=== PATIENT | female | born 1985 | race American Indian/Alaskan Native ===

== ENCOUNTER 2021-11-21 03:14 | Inpatient (IN) | payer SELFPAY ==
[2021-11-21] MEDS ORDERED: ONDANSETRON 4 MG/2 ML INJ IV ONE (03:41)
[2021-11-21] MEDS ORDERED: SODIUM CHLORIDE 0.9% 1000 ML 1,000 ML IV ONE ×2 (03:41→06:05)
--- NOTE | 2021-11-21 03:46 | Emergency Department Report ---
<OMER GOVEA - Last Filed: 11/21/21 05:50> ED General Adult HPI - General Chief complaint: Nausea/Vomiting/Diarrhea Stated complaint: N/V, Chills Time Seen by Provider: 11/21/21 03:38 Source: patient, EMS Mode of arrival: Stretcher Limitations: No Limitations - History of Present Illness Initial comments: Patient is 36 years old female 1 para 0 at 15 weeks gestation. Patient brought to the emergency room via EMS from home for evaluation of diffuse abdominal pain, nausea and vomiting and chills since last night. Patient denied any vaginal bleeding or vaginal discharge. No chest pain or shortness of breath . - Related Data Previous Rx's Medication Instructions Recorded Last Taken Type Ondansetron [Zofran Odt] 4 mg PO Q8HR PRN #20 tab.rapdis 11/21/21 Unknown Rx Allergies Allergy/AdvReac Type Severity Reaction Status Date / Time acetaminophen [From Percocet] Allergy Vomiting Verified 11/21/21 03:15 oxycodone [From Percocet] Allergy Vomiting Verified 11/21/21 03:15 ED Review of Systems Comment: All other systems reviewed and negative Constitutional: denies: chills, fever Respiratory: denies: cough, shortness of breath, SOB with exertion Cardiovascular: denies: chest pain, palpitations Gastrointestinal: abdominal pain, nausea, vomiting. denies: diarrhea, constipation, hematemesis Musculoskeletal: denies: back pain Neurological: denies: headache, weakness, numbness, paresthesias, confusion, abnormal gait ED Past Medical Hx - Past Medical History Previous Medical History?: No - Social History Smoking Status: Former Smoker - Medications Home Medications: Home Medications Medication Instructions Recorded Confirmed Last Taken Type Ondansetron [Zofran Odt] 4 mg PO Q8HR PRN #20 tab.rapdis 11/21/21 Unknown Rx ED Physical Exam - General Limitations: No Limitations General appearance: alert, in no apparent distress - Head Head exam: Present: atraumatic, normocephalic, normal inspection - Eye Eye exam: Present: normal appearance - ENT ENT exam: Present: mucous membranes dry - Neck Neck exam: Present: normal inspection, full ROM. Absent: tenderness, meningismus - Respiratory Respiratory exam: Present: normal lung sounds bilaterally - Cardiovascular Cardiovascular Exam: Present: tachycardia - GI/Abdominal GI/Abdominal exam: Present: soft, normal bowel sounds. Absent: distended, ten derness, guarding, rebound, rigid, organomegaly, mass, bruit, pulsatile mass, hernia - Extremities Exam Extremities exam: Present: normal inspection, full ROM, normal capillary refill. Absent: pedal edema, calf tenderness - Back Exam Back exam: Present: normal inspection, full ROM. Absent: CVA tenderness (R), CVA tenderness (L) - Neurological Exam Neurological exam: Present: alert, oriented X3, CN II-XII intact, normal gait, reflexes normal. Absent: motor sensory deficit - Psychiatric Psychiatric exam: Present: anxious - Skin Skin exam: Present: warm, intact, normal color ED Medical Decision Making - Lab Data Result diagrams: 11/21/21 04:30 11/21/21 04:30 - Medical Decision Making Patient is 36 years old female 1 para 0 at 15 weeks gestation. Patient brought to the emergency room via EMS from home for evaluation of diffuse abdominal pain, nausea and vomiting and chills since last night. Patient denied any vaginal bleeding or vaginal discharge. No chest pain or shortness of breath . Patient received normal saline and Zofran. Labs reviewed and is unremarkable. ultrasound is pending. ED Disposition Clinical Impression: Abdominal pain affecting , Nausea/vomiting in , Acute febrile illness, Metabolic acidosis, Systemic inflammatory response syndrome (SIRS), Hypokalemia, Hypomagnesemia, Suspected 2019 novel coronavirus infection Disposition: ADMITTED INPATIENT Is pt being admited?: No Condition: Good Instructions: Abdominal Pain During , [id number], Nausea and Vomiting, Adult, [id number] Prescriptions: Ondansetron [Zofran Odt] 4 mg PO Q8HR PRN #20 tab.rapdis PRN Reason: Nausea And Vomiting Referrals: PRIMARY CARE, [Primary Care Provider] - 3-5 Days <CESAR ALVAREZ - Last Filed: 11/21/21 10:42> ED Review of Systems ROS: Stated complaint: N/V, Chills Other details as noted in HPI ED Course Vital Signs 11/21/21 11/21/21 11/21/21 03:15 04:21 04:30 Temperature 98.7 F Pulse Rate 125 H 121 H Respiratory 18 36 H 26 H Rate Blood Pressure 105/37 Blood Pressure 106/61 [Left] O2 Sat by Pulse 100 98 99 Oximetry 11/21/21 11/21/21 11/21/21 04:46 05:00 05:43 Temperature Pulse Rate 120 H 123 H Respiratory 28 H 33 H Rate Blood Pressure 95/41 99/34 88/57 Blood Pressure [Left] O2 Sat by Pulse 99 97 99 Oximetry 11/21/21 11/21/21 11/21/21 05:46 06:00 06:08 Temperature Pulse Rate Respiratory 20 Rate Blood Pressure 88/57 100/46 Blood Pressure [Left] O2 Sat by Pulse 98 99 98 Oximetry 11/21/21 11/21/21 11/21/21 06:40 06:45 06:46 Temperature 100.8 F H Pulse Rate 130 H Respiratory 20 Rate Blood Pressure 100/46 102/36 Blood Pressure [Left] O2 Sat by Pulse 99 97 99 Oximetry 11/21/21 11/21/21 11/21/21 06:54 07:00 07:16 Temperature Pulse Rate Respiratory 20 Rate Blood Pressure 95/44 95/44 Blood Pressure [Left] O2 Sat by Pulse 97 97 Oximetry 11/21/21 11/21/21 07:48 09:14 Temperature 100.2 F H 99.4 F Pulse Rate 130 H 134 H Respiratory 20 16 Rate Blood Pressure Blood Pressure 95/44 99/58 [Left] O2 Sat by Pulse 100 97 Oximetry - Reevaluation(s) Reevaluation #1: 11/21/21 07:14 Patient is seen and examined. Laboratory studies, vital signs, and ultrasound are reviewed and appreciated. No CVA tenderness. No cough. No loss of taste or smell. No abdominal tenderness. Has spiked a low-grade fever to 100.8 degrees, heart rate 138 bpm, blood pressure 95/75 mmHg systolic. Patient is not COVID-19 vaccinated. She reports no sick contacts that she is aware of. Denies sore throat and headache. She is able to tolerate acetaminophen without difficulty. Additional IV fluids ordered. Laboratory studies added on. Isolation precautions ordered. Discussed this with the patient. Reassess after completion of resuscitation. She is 2, para 1, and typically goes to [place] for her medical care 11/21/21 10:07 The patient is persistently tachycardic. Heart rate now 140 bpm. She has received aggressive IV fluid resuscitation, as well as antipyresis. Reached out to gynecology/obstetrics on-call, Dr. Crisostomo. I discussed the patient's history, physical, laboratory studies and imaging studies and clinical impression. This is a previable , but Dr. Crisostomo of the obstetric service indicates that her group can follow in consultation. Patient will be admitted to the medical service under the care of Dr. Bazzi Covid labs ordered, blood cultures and lactic acid ordered. Medical decision makin-year-old female, with acute febrile illness, metabolic acidosis, hypokalemia, hypomagnesemia, persistently abnormal vital signs in spite of vigorous resuscitation here in the emergency room, to be adm itted to the medical service for optimization and further diagnostic work-up and evaluation. No respiratory symptoms. Pulse ox 100% on room air. No sore throat ED Medical Decision Making - Lab Data Result diagrams: 11/21/21 04:30 11/21/21 04:30 Vital Signs 11/21/21 11/21/21 11/21/21 03:15 04:21 04:30 Temperature 98.7 F Pulse Rate 125 H 121 H Respiratory 18 36 H 26 H Rate Blood Pressure 105/37 Blood Pressure 106/61 [Left] O2 Sat by Pulse 100 98 99 Oximetry 11/21/21 11/21/21 11/21/21 04:46 05:00 05:43 Temperature Pulse Rate 120 H 123 H Respiratory 28 H 33 H Rate Blood Pressure 95/41 99/34 88/57 Blood Pressure [Left] O2 Sat by Pulse 99 97 99 Oximetry 11/21/21 11/21/21 11/21/21 05:46 06:00 06:08 Temperature Pulse Rate Respiratory 20 Rate Blood Pressure 88/57 100/46 Blood Pressure [Left] O2 Sat by Pulse 98 99 98 Oximetry 11/21/21 06:54 Temperature Pulse Rate Respiratory 20 Rate Blood Pressure Blood Pressure [Left] O2 Sat by Pulse Oximetry Lab Results 11/21/21 11/21/21 11/21/21 Range/Units 04:30 04:30 04:30 WBC 12.4 H (4.5-11.0) K/mm3 RBC 4.39 (3.65-5.03) M/mm3 Hgb 12.7 (10.1-14.3) gm/dl Hct 38.6 (30.3-42.9) % MCV 88 (79-97) fl MCH 29 (28-32) pg MCHC 33 (30-34) % RDW 13.4 (13.2-15.2) % Plt Count 200 (140-440) K/mm3 Add Manual Diff Complete Total Counted 100 Seg Neutrophils % Cashier Host/Hostess Seg Neuts % (Manual) 93.0 H (40.0-70.0) % Lymphocytes % (Manual) 4.0 L (13.4-35.0) % Monocytes % (Manual) 3.0 (0.0-7.3) % Nucleated RBC % Not Reportable Seg Neutrophils # Man 11.5 H (1.8-7.7) K/mm3 Band Neutrophils # 0.0 K/mm3 Lymphocytes # (Manual) 0.5 L (1.2-5.4) K/mm3 Abs React Lymphs (Man) 0.0 K/mm3 Monocytes # (Manual) 0.4 (0.0-0.8) K/mm3 Eosinophils # (Manual) 0.0 (0.0-0.4) K/mm3 Basophils # (Manual) 0.0 (0.0-0.1) K/mm3 Metamyelocytes # 0.0 K/mm3 Myelocytes # 0.0 K/mm3 Promyelocytes # 0.0 K/mm3 Blast Cells # 0.0 K/mm3 WBC Morphology Not Reportable Hypersegmented Neuts Not Reportable Hyposegmented Neuts Not Reportable Hypogranular Neuts Not Reportable Smudge Cells Not Reportable Toxic Granulation Not Reportable Toxic Vacuolation Not Reportable Dohle Bodies Not Reportable Pelger-Huet Anomaly Not Reportable Caleb Rods Not Reportable Platelet Estimate Consistent w auto Clumped Platelets Not Reportable Plt Clumps, EDTA Not Reportable Large Platelets Not Reportable Giant Platelets Not Reportable Platelet Satelliting Not Reportable Plt Morphology Comment Not Reportable RBC Morphology Normal Dimorphic RBCs Not Reportable Polychromasia Not Reportable Hypochromasia Not Reportable Poikilocytosis Not Reportable Anisocytosis Not Reportable Microcytosis Not Reportable Macrocytosis Not Reportable Spherocytes Not Reportable Pappenheimer Bodies Not Reportable Sickle Cells Not Reportable Target Cells Not Reportable Tear Drop Cells Not Reportable Ovalocytes Not Reportable Helmet Cells Not Reportable [place] Bodies Not Reportable [place] Rings Not Reportable [place] Cells Not Reportable Bite Cells Not Reportable Crenated Cell Not Reportable Elliptocytes Not Reportable Acanthocytes (Spur) Not Reportable Rouleaux Not Reportable Hemoglobin C Crystals Not Reportable Schistocytes Not Reportable Malaria parasites Not Reportable Romain Bodies Not Reportable Hem Pathologist Commnt No Sodium 131 L (137-145) mmol/L Potassium 3.2 L (3.6-5.0) mmol/L Chloride 96.5 L (98-107) mmol/L Carbon Dioxide 18 L (22-30) mmol/L Anion Gap 20 mmol/L BUN 6 L (7-17) mg/dL Creatinine 0.6 (0.6-1.2) mg/dL Estimated GFR > 60 ml/min BUN/Creatinine Ratio 10 % Glucose 117 H (65-100) mg/dL Calcium 8.4 (8.4-10.2) mg/dL HCG, Quant 63769 H (0-4) mIU/mL Urine Color (Yellow) Urine Turbidity (Clear) Urine pH (5.0-7.0) Ur Specific [place] (1.003-1.030) Urine Protein (Negative) mg/dL Urine Glucose (UA) (Negative) mg/dL Urine Ketones (Negative) mg/dL Urine Blood (Negative) Urine Nitrite (Negative) Urine Bilirubin (Negative) Urine Urobilinogen (<2.0) mg/dL Ur Leukocyte Esterase (Negative) Urine WBC (Auto) (0.0-6.0) /HPF Urine RBC (Auto) (0.0-6.0) /HPF U Epithel Cells (Auto) (0-13.0) /HPF Urine Mucus /HPF 11/21/21 Range/Units Unknown WBC (4.5-11.0) K/mm3 RBC (3.65-5.03) M/mm3 Hgb (10.1-14.3) gm/dl Hct (30.3-42.9) % MCV (79-97) fl MCH (28-32) pg MCHC (30-34) % RDW (13.2-15.2) % Plt Count (140-440) K/mm3 Add Manual Diff Total Counted Seg Neutrophils % Seg Neuts % (Manual) (40.0-70.0) % Lymphocytes % (Manual) (13.4-35.0) % Monocytes % (Manual) (0.0-7.3) % Nucleated RBC % Seg Neutrophils # Man (1.8-7.7) K/mm3 Band Neutrophils # K/mm3 Lymphocytes # (Manual) (1.2-5.4) K/mm3 Abs React Lymphs (Man) K/mm3 Monocytes # (Manual) (0.0-0.8) K/mm3 Eosinophils # (Manual) (0.0-0.4) K/mm3 Basophils # (Manual) (0.0-0.1) K/mm3 Metamyelocytes # K/mm3 Myelocytes # K/mm3 Promyelocytes # K/mm3 Blast Cells # K/mm3 WBC Morphology Hypersegmented Neuts Hyposegmented Neuts Hypogranular Neuts Smudge Cells Toxic Granulation Toxic Vacuolation Dohle Bodies Pelger-Huet Anomaly Caleb Rods Platelet Estimate Clumped Platelets Plt Clumps, EDTA Large Platelets Giant Platelets Platelet Satelliting Plt Morphology Comment RBC Morphology Dimorphic RBCs Polychromasia Hypochromasia Poikilocytosis Anisocytosis Microcytosis Macrocytosis Spherocytes Pappenheimer Bodies Sickle Cells Target Cells Tear Drop Cells Ovalocytes Helmet Cells [place] Bodies [place] Rings [place] Cells Bite Cells Crenated Cell Elliptocytes Acanthocytes (Spur) Rouleaux Hemoglobin C Crystals Schistocytes Malaria parasites Romain Bodies Hem Pathologist Commnt Sodium (137-145) mmol/L Potassium (3.6-5.0) mmol/L Chloride (98-107) mmol/L Carbon Dioxide (22-30) mmol/L Anion Gap mmol/L BUN (7-17) mg/dL Creatinine (0.6-1.2) mg/dL Estimated GFR ml/min BUN/Creatinine Ratio % Glucose (65-100) mg/dL Calcium (8.4-10.2) mg/dL HCG, Quant (0-4) mIU/mL Urine Color Yellow (Yellow) Urine Turbidity Clear (Clear) Urine pH 5.0 (5.0-7.0) Ur Specific [place] 1.016 (1.003-1.030) Urine Protein <15 mg/dl (Negative) mg/dL Urine Glucose (UA) Neg (Negative) mg/dL Urine Ketones 80 (Negative) mg/dL Urine Blood Mod (Negative) Urine Nitrite Neg (Negative) Urine Bilirubin Neg (Negative) Urine Urobilinogen < 2.0 (<2.0) mg/dL Ur Leukocyte Esterase Neg (Negative) Urine WBC (Auto) 1.0 (0.0-6.0) /HPF Urine RBC (Auto) 2.0 (0.0-6.0) /HPF U Epithel Cells (Auto) 1.0 (0-13.0) /HPF Urine Mucus 1+ /HPF - EKG Data -: EKG Interpreted by Ia EKG shows normal: sinus rhythm Rate: tachycardia - EKG Data 11/21/21 10:42 The EKG is interpreted at 1024 Sinus rhythm, tachycardia, rate 150 bpm. Normal axis, normal intervals, normal P wave axis, motion artifact. Abnormal EKG. Not a STEMI. - Radiology Data Radiology results: pending, report reviewed, image reviewed ULTRASOUND OBSTETRIC INDICATION: Abdominal pain, 15 weeks . TECHNIQUE: Transabdominal. COMPARISON: None. FINDINGS: There is a single intrauterine . Biparietal Diameter = 2.5 cm = 14 weeks, 3 day(s). Head Circumference = 10 cm = 14 weeks, 5 day(s). Abdominal Circumference = 9.9 cm = 16 weeks, 0 day(s). Femur Length = 1.9 cm = 15 weeks, 4 day(s). Average Ul trasound Age (AUA) = 15 weeks, 1 day(s). Heart Rate: 149 beats per minute. Estimated Weight in grams (if calculated): Not calculated Estimated Weight Growth Percentile (if calculated): Not calculated Position: variable. Cervix: closed. Length in cm (if measured): Placenta: anterofundal and free of the os. Amniotic Fluid Volume: normal Amniotic Fluid Index (JUAN) in cm (if calculated): Not measured. Maternal Adnexa: No significant abnormality. IMPRESSION: 1. Single, living intrauterine with estimated sonographic age of 15 weeks, 1 day(s). 2. No significant sonographic abnormality. Signer Name: Brian Loza MD Signed: 11/21/2021 4:56 AM Workstation Name: [id number] Critical care attestation.: If time is entered above; I have spent that time in minutes in the direct care of this critically ill patient, excluding procedure time. ED Disposition Is pt being admited?: Yes Does the pt Need Aspirin: No
[2021-11-21 04:51] LABS: Hematocrit 38.6 % (30.3-42.9); Hemoglobin 12.7 gm/dl (10.1-14.3); Mean Corpuscular HGB Conc 33 % (30-34); Mean Corpuscular Volume 88 fl (79-97); Platelet Count 200 K/mm3 (140-440); Red Blood Count 4.39 M/mm3 (3.65-5.03); Red Cell Distribution Width 13.4 % (13.2-15.2)
[2021-11-21 05:08] LABS: Blood Urea Nitrogen 6 mg/dL (7-17); Calcium 8.4 mg/dL (8.4-10.2); Hemolysis Index 16
[2021-11-21 05:26] LABS: RBC Morphology Normal; Total Cells Counted 100
[2021-11-21 05:27] LABS: BUN/Creatinine Ratio 10; Platelet Estimate Consistent w Auto
--- NOTE | 2021-11-21 06:00 | Ultrasound Report ---
ULTRASOUND OBSTETRIC INDICATION: Abdominal pain, 15 weeks . TECHNIQUE: Transabdominal. COMPARISON: None. FINDINGS: There is a single intrauterine . Biparietal Diameter = 2.5 cm = 14 weeks, 3 day(s). Head Circumference = 10 cm = 14 weeks, 5 day(s). Abdominal Circumference = 9.9 cm = 16 weeks, 0 day(s). Femur Length = 1.9 cm = 15 weeks, 4 day(s). Average Ultrasound Age (AUA) = 15 weeks, 1 day(s). Heart Rate: 149 beats per minute. Estimated Weight in grams (if calculated): Not calculated Estimated Weight Growth Percentile (if calculated): Not calculated Position: variable. Cervix: closed. Length in cm (if measured): Placenta: anterofundal and free of the os. Amniotic Fluid Volume: normal Amniotic Fluid Index (JUAN) in cm (if calculated): Not measured. Maternal Adnexa: No significant abnormality. IMPRESSION: 1. Single, living intrauterine with estimated sonographic age of 15 weeks, 1 day(s). 2. No significant sonographic abnormality. Signer Name: Brian Loza MD Signed: 11/21/2021 5:56 AM Workstation Name: [id number]
[2021-11-21] MEDS ORDERED: ACETAMINOPHEN 325 MG TAB PO ONE (06:46)
[2021-11-21 06:48] LABS: Bilirubin,Urine NEG (Negative); Blood,Urine MOD (Negative); Color,Urine Yellow (Yellow); Mucus,Urine 1+ /HPF; Protein,Urine <15 mg/dL mg/dL (Negative); Urobilinogen,Urine < 2.0 mg/dL (<2.0)
[2021-11-21] MEDS ORDERED: POTASSIUM CHLORIDE ER 20 MEQ TAB PO ONE (06:55)
[2021-11-21] MEDS ORDERED: LACTATED RINGERS 1,000 ML IV ONE (07:14)
[2021-11-21 07:29] LABS: Alanine Aminotransferase 15 units/L (7-56); Albumin 3.6 g/dL (3.9-5); Bilirubin,Direct < 0.2 mg/dL (0-0.2)
[2021-11-21] MEDS ORDERED: MAGNESIUM OXIDE 400 MG TAB PO STA (07:33)
[2021-11-21] MEDS ORDERED: D5W/0.45% NACL 1,000 ML IV SCH (08:00)
[2021-11-21] MEDS ORDERED: diphenhydrAMINE 50 MG/ML VIAL IV ONE (09:34)
[2021-11-21] MEDS ORDERED: NALOXONE 0.4 MG/1 ML INJ IV PRN (10:42)
[2021-11-21] MEDS ORDERED: MORPHINE 4 MG/1 ML INJ IV PRN (10:42)
[2021-11-21] MEDS ORDERED: MORPHINE 2 MG/1 ML INJ IV PRN (10:42)
--- NOTE | 2021-11-21 10:59 | History and Physical Report ---
History of Present Illness Date of examination: 11/21/21 Date of admission: 11/21/21 Chief complaint: chills History of present illness: 28-year-old female with 15-week and no other significant past medical history who presented to the emergency department with nausea, vomiting and chills. Per patient she has had persistent nausea and vomiting since finding out about her . Her vomitus typically is mostly saliva as she has had decreased appetite. She began having full body chills and subjective fevers while at home last night. Which prompted her to come to the ED. She denies associated shortness of breath, chest pain, cough, loss of sense of taste and smell. Also denies dysuria but has urinary frequency. She reports having 2 doses of [employer] COVID vaccine but declined Covid PCR testing in the ED. Influenza swab was negative. Despite supportive care, patient continued to be persistently tachycardic and was admitted for observation. Past History Past Medical History: No medical history Past Surgical History: No surgical history Social history: Lives alone Family history: no significant family history Medications and Allergies Allergies Allergy/AdvReac Type Severity Reaction Status Date / Time acetaminophen [From Percocet] Allergy Vomiting Verified 11/21/21 03:15 oxycodone [From Percocet] Allergy Vomiting Verified 11/21/21 03:15 Home Medications Medication Instructions Recorded Confirmed Last Taken Type Multivitamin Tablet 1 tab PO DAILY 11/22/21 11/22/21 11/18/21 History Amoxicillin [Trimox CAP] 1,000 mg PO Q8H 4 Days #12 capsule 11/23/21 Unknown Rx Azithromycin 250 mg PO DAILY 4 Days #4 tablet 11/23/21 Unknown Rx Ketorolac [Toradol] 10 mg PO Q6H PRN 3 Days #12 tablet 11/23/21 Unknown Rx Methylergonovine [Methergine] 0.2 mg PO Q8HR 1 Days #2 tablet 11/23/21 Unknown Rx Active Meds: Active Medications Acetaminophen (Acetaminophen 325 Mg Tab) 650 mg PO Q4H PRN PRN Reason: Pain MILD(1-3)/Fever >100.5/MARLEY Enoxaparin Sodium (Enoxaparin 40 Mg/0.4 Ml Inj) 40 mg SUB-Q QDAY ANA MARIA Dextrose/Sodium Chloride (D5/0.45ns) 1,000 mls @ 0 mls/hr IV DIRECT ANA MARIA Last Admin: 11/21/21 07:47 Dose: 999 mls/hr Documented by: Sodium Chloride (Nacl 0.9% 1000 Ml) 1,000 mls @ 100 mls/hr IV DIRECT ANA MARIA Morphine Sulfate (Morphine 4 Mg/1 Ml Inj) 4 mg IV Q4H PRN PRN Reason: Pain , Severe (7-10) Morphine Sulfate (Morphine 2 Mg/1 Ml Inj) 2 mg IV Q4H PRN PRN Reason: Pain, Moderate (4-6) Naloxone HCl (Naloxone 0.4 Mg/1 Ml Inj) 0.1 mg IV Q2MIN PRN PRN Reason: Res Rate </= 8 or 02 SAT < 92% Ondansetron HCl (Ondansetron 4 Mg/2 Ml Inj) 4 mg IV Q8H PRN PRN Reason: Nausea And Vomiting Sodium Chloride (Sodium Chloride 0.9% 10 Ml Flush Syringe) 10 ml IV BID ANA MARIA Sodium Chloride (Sodium Chloride 0.9% 10 Ml Flush Syringe) 10 ml IV PRN PRN PRN Reason: LINE FLUSH Review of Systems Constitutional: weight gain, fever, chills, poor appetite, no sweats, no fatigue, no malaise Ears, nose, mouth and throat: headache, no nasal congestion, no nasal discharge, no sinus pressure, no sore throat Breasts: deferred Cardiovascular: no chest pain, no palpitations, no rapid/irregular heart beat, no lightheadedness, no dyspnea on exertion, no high blood pressure Respiratory: no cough, no congestion Gastrointestinal: nausea, vomiting, no change in bowel habits Genitourinary Female: urinary frequency, nocturia, , no urgency Musculoskeletal: no myalgias Integumentary: no rash, no pruritis Neurological: no migraines, no changes in smell/taste Endocrine: no cold intolerance, no heat intolerance, no polyphagia, no excessive thirst, no fatigue Exam - Physical Exam Narrative exam: GENERAL: Well-developed well-nourished. Lying bed in no acute distress. HEENT: Normocephalic. Atraumatic. CHEST/LUNGS: CTAB on room air HEART/CARDIOVASCULAR: Tachycardic. No murmur, rubs or gallops appreciated. ABDOMEN: +BS. NT. Gravid belly. SKIN: No rashes noted. NEURO: No focal motor deficit. Follows all commands. MUSCULOSKELETAL: No joint effusion EXTREMITIES: No cyanosis, clubbing or edema. PSYCH: Cooperative. - Constitutional Vitals: Temp Pulse Resp BP Pulse Ox 99.4 F 149 H 16 113/54 97 11/21/21 09:14 11/21/21 10:49 11/21/21 10:49 11/21/21 10:49 11/21/21 10:49 Results - Labs CBC & Chem 7: 11/22/21 02:12 11/22/21 02:12 Labs: Laboratory Last Values WBC 12.4 K/mm3 (4.5-11.0) H 11/21/21 04:30 RBC 4.39 M/mm3 (3.65-5.03) 11/21/21 04:30 Hgb 12.7 gm/dl (10.1-14.3) 11/21/21 04:30 Hct 38.6 % (30.3-42.9) 11/21/21 04:30 MCV 88 fl (79-97) 11/21/21 04:30 MCH 29 pg (28-32) 11/21/21 04:30 MCHC 33 % (30-34) 11/21/21 04:30 RDW 13.4 % (13.2-15.2) 11/21/21 04:30 Plt Count 200 K/mm3 (140-440) 11/21/21 04:30 Add Manual Diff Complete 11/21/21 04:30 Total Counted 100 11/21/21 04:30 Seg Neutrophils % Medical Lead 11/21/21 04:30 Seg Neuts % (Manual) 93.0 % (40.0-70.0) H 11/21/21 04:30 Lymphocytes % (Manual) 4.0 % (13.4-35.0) L 11/21/21 04:30 Monocytes % (Manual) 3.0 % (0.0-7.3) 11/21/21 04:30 Nucleated RBC % Not Reportable 11/21/21 04:30 Seg Neutrophils # Man 11.5 K/mm3 (1.8-7.7) H 11/21/21 04:30 Band Neutrophils # 0.0 K/mm3 11/21/21 04:30 Lymphocytes # (Manual) 0.5 K/mm3 (1.2-5.4) L 11/21/21 04:30 Abs React Lymphs (Man) 0.0 K/mm3 11/21/21 04:30 Monocytes # (Manual) 0.4 K/mm3 (0.0-0.8) 11/21/21 04:30 Eosinophils # (Manual) 0.0 K/mm3 (0.0-0.4) 11/21/21 04:30 Basophils # (Manual) 0.0 K/mm3 (0.0-0.1) 11/21/21 04:30 Metamyelocytes # 0.0 K/mm3 11/21/21 04:30 Myelocytes # 0.0 K/mm3 11/21/21 04:30 Promyelocytes # 0.0 K/mm3 11/21/21 04:30 Blast Cells # 0.0 K/mm3 11/21/21 04:30 WBC Morphology Not Reportable 11/21/21 04:30 Hypersegmented Neuts Not Reportable 11/21/21 04:30 Hyposegmented Neuts Not Reportable 11/21/21 04:30 Hypogranular Neuts Not Reportable 11/21/21 04:30 Smudge Cells Not Reportable 11/21/21 04:30 Toxic Granulation Not Reportable 11/21/21 04:30 Toxic Vacuolation Not Reportable 11/21/21 04:30 Dohle Bodies Not Reportable 11/21/21 04:30 Pelger-Huet Anomaly Not Reportable 11/21/21 04:30 Caleb Rods Not Reportable 11/21/21 04:30 Platelet Estimate Consistent w auto 11/21/21 04:30 Clumped Platelets Not Reportable 11/21/21 04:30 Plt Clumps, EDTA Not Reportable 11/21/21 04:30 Large Platelets Not Reportable 11/21/21 04:30 Giant Platelets Not Reportable 11/21/21 04:30 Platelet Satelliting Not Reportable 11/21/21 04:30 Plt Morphology Comment Not Reportable 11/21/21 04:30 RBC Morphology Normal 11/21/21 04:30 Dimorphic RBCs Not Reportable 11/21/21 04:30 Polychromasia Not Reportable 11/21/21 04:30 Hypochromasia Not Reportable 11/21/21 04:30 Poikilocytosis Not Reportable 11/21/21 04:30 Anisocytosis Not Reportable 11/21/21 04:30 Microcytosis Not Reportable 11/21/21 04:30 Macrocytosis Not Reportable 11/21/21 04:30 Spherocytes Not Reportable 11/21/21 04:30 Pappenheimer Bodies Not Reportable 11/21/21 04:30 Sickle Cells Not Reportable 11/21/21 04:30 Target Cells Not Reportable 11/21/21 04:30 Tear Drop Cells Not Reportable 11/21/21 04:30 Ovalocytes Not Reportable 11/21/21 04:30 Helmet Cells Not Reportable 11/21/21 04:30 [place] Bodies Not Reportable 11/21/21 04:30 Reading Rings Not Reportable 11/21/21 04:30 Saul Cells Not Reportable 11/21/21 04:30 Bite Cells Not Reportable 11/21/21 04:30 Crenated Cell Not Reportable 11/21/21 04:30 Elliptocytes Not Reportable 11/21/21 04:30 Acanthocytes (Spur) Not Reportable 11/21/21 04:30 Rouleaux Not Reportable 11/21/21 04:30 Hemoglobin C Crystals Not Reportable 11/21/21 04:30 Schistocytes Not Reportable 11/21/21 04:30 Malaria parasites Not Reportable 11/21/21 04:30 Romain Bodies Not Reportable 11/21/21 04:30 Hem Pathologist Commnt No 11/21/21 04:30 Sodium 131 mmol/L (137-145) L 11/21/21 04:30 Potassium 3.2 mmol/L (3.6-5.0) L 11/21/21 04:30 Chloride 96.5 mmol/L (98-107) L 11/21/21 04:30 Carbon Dioxide 18 mmol/L (22-30) L 11/21/21 04:30 Anion Gap 20 mmol/L 11/21/21 04:30 BUN 6 mg/dL (7-17) L 11/21/21 04:30 Creatinine 0.6 mg/dL (0.6-1.2) 11/21/21 04:30 Estimated GFR > 60 ml/min 11/21/21 04:30 BUN/Creatinine Ratio 10 % 11/21/21 04:30 Glucose 117 mg/dL (65-100) H 11/21/21 04:30 Calcium 8.4 mg/dL (8.4-10.2) 11/21/21 04:30 Magnesium 1.60 mg/dL (1.7-2.3) L 11/21/21 04:30 Total Bilirubin 0.40 mg/dL (0.1-1.2) 11/21/21 04:30 Direct Bilirubin < 0.2 mg/dL (0-0.2) 11/21/21 04:30 Indirect Bilirubin 0.2 mg/dL 11/21/21 04:30 AST 15 units/L (5-40) 11/21/21 04:30 ALT 15 units/L (7-56) 11/21/21 04:30 Alkaline Phosphatase 60 units/L (35-129) 11/21/21 04:30 Total Creatine Kinase 44 units/L (30-135) 11/21/21 04:30 Total Protein 6.9 g/dL (6.3-8.2) 11/21/21 04:30 Albumin 3.6 g/dL (3.9-5) L 11/21/21 04:30 Albumin/Globulin Ratio 1.1 % 11/21/21 04:30 HCG, Quant 18554 mIU/mL (0-4) H 11/21/21 04:30 Urine Color Yellow (Yellow) 11/21/21 Unknown Urine Turbidity Clear (Clear) 11/21/21 Unknown Urine pH 5.0 (5.0-7.0) 11/21/21 Unknown Ur Specific [place] 1.016 (1.003-1.030) 11/21/21 Unknown Urine Protein <15 mg/dl mg/dL (Negative) 11/21/21 Unknown Urine Glucose (UA) Neg mg/dL (Negative) 11/21/21 Unknown Urine Ketones 80 mg/dL (Negative) 11/21/21 Unknown Urine Blood Mod (Negative) 11/21/21 Unknown Urine Nitrite Neg (Negative) 11/21/21 Unknown Urine Bilirubin Neg (Negative) 11/21/21 Unknown Urine Urobilinogen < 2.0 mg/dL (<2.0) 11/21/21 Unknown Ur Leukocyte Esterase Neg (Negative) 11/21/21 Unknown Urine WBC (Auto) 1.0 /HPF (0.0-6.0) 11/21/21 Unknown Urine RBC (Auto) 2.0 /HPF (0.0-6.0) 11/21/21 Unknown U Epithel Cells (Auto) 1.0 /HPF (0-13.0) 11/21/21 Unknown Urine Mucus 1+ /HPF 11/21/21 Unknown Influenza A (Rapid) Negative (Negative) 11/21/21 Unknown Influenza B (Rapid) Negative (Negative) 11/21/21 Unknown Assessment and Plan Assessment and plan: #Sepsis -Elevated WBC, febrile -1 dose of Rocephin in emergency department -Chest x-ray ordered -Influenza antigen A/B negative; patient refused Covid PCR -Blood cultures/urine cultures ordered -UA unremarkable -Source unknown at this time, could be secondary to persistent vomiting versus acute febrile viral illness #Persistent tachycardia -EKG with sinus tachycardia -Not responsive to fluids -V/Q scan rule out PE -Telemetry -will continue to monitor #Elevated D-dimer -Expected elevated D-dimer and -Given persistent tachycardia and degree of elevation will order VQ scan to rule out acute PE #Elevated lactate -Lactate 3.80 -Received 2 L boluses -We will monitor #Volume depletion -Likely secondary to vomiting -Continue IV fluids #Hypokalemia #Hypomagnesemia -will replete and monitor -Likely secondary to prolonged vomiting # -15 weeks by ultrasound -will avoid teratogenic substances -OB following, assistance appreciated Advance Directives: No VTE prophylaxis?: Chemical Plan of care discussed with patient/family: Yes
[2021-11-21] MEDS ORDERED: cefTRIAXone/NS 1 GM/50 ML 1 GM/50 ML BAG IV ONE (11:08)
[2021-11-21] MEDS: ENOXAPARIN 40 MG/0.4 ML INJ SUB-Q SCH (12:09)
--- NOTE | 2021-11-21 13:33 | Electrocardiograph Report ---
[facility] Test Date: 2021-11-21 Test Time: 10:24:55 Pat Name: MAXIMINO ROGERS Department: Room: [place] [address] Gender: F Beam Doffer: ANJANA : 1985 Requested By: CESAR ALVAREZ Order Number: [id number] Reading MD: Ryley Jain Measurements Intervals [place] Rate: 150 P: 71 PA: 131 QRS: 70 QRSD: 90 T: 31 QT: 259 QTc: 410 Interpretive Statements Sinus tachycardia Low voltage, precordial leads No previous ECG available for comparison Electronically Signed On 11-21-2021 13:33:34 EST by Ryley Jain
[2021-11-21] MEDS: SODIUM CHLORIDE 0.9% 1000 ML 1,000 ML IV SCH (14:07)
[2021-11-22 02:38] LABS: Hematocrit 34.3 % (30.3-42.9); Hemoglobin 11.1 gm/dl (10.1-14.3); Mean Corpuscular HGB Conc 32 % (30-34); Mean Corpuscular Volume 87 fl (79-97); Platelet Count 143 K/mm3 (140-440); Red Blood Count 3.92 M/mm3 (3.65-5.03); Red Cell Distribution Width 13.4 % (13.2-15.2)
[2021-11-22 02:44] LABS: Blood Urea Nitrogen 4 mg/dL (7-17); Hemolysis Index 2
[2021-11-22 02:48] LABS: BUN/Creatinine Ratio 7
--- NOTE | 2021-11-22 03:18 | Event Note ---
Date: 11/22/21 36 year-old female who is about 15 weeks admitted with sepsis and possible PUI has been complaining of abdominal pain and vaginal bleeding this evening. She has had multiple episodes of bleeding when she uses the commode. Call was immediately placed to the on-call DEVELOPMENT COACH- who recommended stat ABG and stat repeat transvaginal ultrasound. A consult is currently in place for DEVELOPMENT COACH follow-up. We will continue to monitor CBC.
[2021-11-22 03:20] LABS: Total Cells Counted 100
[2021-11-22 03:22] LABS: RBC Morphology Normal
[2021-11-22] MEDS ORDERED: MELATONIN 5 MG TAB PO PRN (04:02)
[2021-11-22 04:09] LABS: Free T4 (Free Thyroxine) 1.01 ng/dL (0.76-1.46)
--- NOTE | 2021-11-22 06:02 | Ultrasound Report ---
ULTRASOUND OBSTETRIC INDICATION: vaginal bleeding. TECHNIQUE: Transvaginal. COMPARISON: OB ultrasound from 11/21/2021. FINDINGS: A single live intrauterine is again seen with an estimated age of 13 weeks, 3 days based on a crown-rump length of 7 mm. heart rate is 191 bpm. No associated acute abnormality is identif ied in the uterus. The ovaries are unremarkable. No free fluid is seen. IMPRESSION: Single live intrauterine without acute findings. Signer Name: Brian Loza MD Signed: 11/22/2021 5:58 AM Workstation Name: [id number]
[2021-11-22] MEDS: POTASSIUM CHLORIDE ER 20 MEQ TAB PO SCH ×2 (09:26→16:33)
[2021-11-22] MEDS: ACETAMINOPHEN 325 MG TAB PO PRN ×3 (09:27→19:55)
[2021-11-22] MEDS: ONDANSETRON 4 MG/2 ML INJ IV PRN ×2 (09:27→20:01)
--- NOTE | 2021-11-22 09:36 | Nuclear Medicine Report ---
NUCLEAR MEDICINE PERFUSION LUNG SCAN INDICATION: r/o PE. Shortness of breath TECHNIQUE: 2.5 mCi of Tc-99m MAA were given by IV. COMPARISON: Chest radiograph has been ordered but not yet available for comparison FINDINGS: PERFUSION: No significant perfusion defects. ADDITIONAL FINDINGS: None. IMPRESSION: 1. Low probability for pulmonary embolism. Signer Name: Stephan Gaston MD Signed: 11/22/2021 9:32 AM Workstation Name: [id number]
--- NOTE | 2021-11-22 09:57 | XRay Report ---
CHEST 1 VIEW 11/22/2021 8:51 AM INDICATION / CLINICAL INFORMATION: vq scan. Shortness of breath COMPARISON: Perfusion scan today FINDINGS: SUPPORT DEVICES: None. HEART / MEDIASTINUM: No significant abnormality. LUNGS / PLEURA: Mild bibasilar parenchymal disease/atelectasis. No pneumothorax. ADDITIONAL FINDINGS: No significant additional findings. IMPRESSION: 1. Mild bibasilar parenchymal disease/atelectasis Signer Name: Stephan Gaston MD Signed: 11/22/2021 9:53 AM Workstation Name: [id number]
--- NOTE | 2021-11-22 13:21 | Progress Note ---
Assessment and Plan Assessment and plan: #Sepsis -Elevated WBC, afebrile -1 dose of Rocephin in emergency department -Chest x-ray shows bilateral parchymeal disease -Influenza antigen A/B negative -COVID PCR pending -Blood cultures collected -UA unremarkable -Source unknown at this time, could be secondary to persistent vomiting versus acute febrile viral illness #Acute hypoxic respiratory failure -SpO2 dropped to mid-low 80s -supplemental O2 -V/Q scan low probability for PE -will continue to monitor -etiology unknown #Persistent tachycardia -EKG with sinus tachycardia -Not responsive to fluids -V/Q scan low probability for PE -Telemetry -TSH and fT4 WNL -will continue to monitor #Elevated D-dimer -Expected elevated D-dimer and -Given persistent tachycardia and degree of elevation will order VQ scan to rule out acute PE #Metabolic acidosis - #Elevated lactate-resolved -Received 2 L boluses -We will monitor #Volume depletion -Likely secondary to vomiting -Continue IV fluids #Hypokalemia #Hypomagnesemia -will replete and monitor -Likely secondary to prolonged vomiting # #Vaginal bleeding -15 weeks by ultrasound -repeat ultrasound shows normal baby with heart tones -will avoid teratogenic substances -OB following, assistance appreciated Disposition Plan: Continue medical management History Interval history: Patient with vaginal bleeding overnight. Discussed results of ultrasound. Continues to have bleeding only noticeable with wiping after urination. Continues to feel malaise. Hospitalist Physical - Physical exam Narrative exam: GENERAL: Well-developed well-nourished. Lying bed in no acute distress. HEENT: Normocephalic. Atraumatic. CHEST/LUNGS: CTAB on room air HEART/CARDIOVASCULAR: Tachycardic. No murmur, rubs or gallops appreciated. ABDOMEN: +BS. NT. Gravid belly. SKIN: No rashes noted. NEURO: No focal motor deficit. Follows all commands. EXTREMITIES: No cyanosis, clubbing or edema. PSYCH: Cooperative. - Constitutional Vitals: Temp Pulse Resp BP Pulse Ox 99.4 F 123 H 39 H 93/34 88 11/21/21 09:14 11/22/21 12:00 11/22/21 12:00 11/22/21 12:00 11/22/21 12:00 Results - Labs CBC & Chem 7: 11/22/21 02:12 11/22/21 02:12 Labs: Laboratory Last Values WBC 16.9 K/mm3 (4.5-11.0) H 11/22/21 02:12 RBC 3.92 M/mm3 (3.65-5.03) 11/22/21 02:12 Hgb 11.1 gm/dl (10.1-14.3) 11/22/21 02:12 Hct 34.3 % (30.3-42.9) 11/22/21 02:12 MCV 87 fl (79-97) 11/22/21 02:12 MCH 28 pg (28-32) 11/22/21 02:12 MCHC 32 % (30-34) 11/22/21 02:12 RDW 13.4 % (13.2-15.2) 11/22/21 02:12 Plt Count 143 K/mm3 (140-440) 11/22/21 02:12 Add Manual Diff Complete 11/22/21 02:12 Total Counted 100 11/22/21 02:12 Seg Neutrophils % Non Clinical Advisor 11/22/21 02:12 Seg Neuts % (Manual) 91.0 % (40.0-70.0) H 11/22/21 02:12 Lymphocytes % (Manual) 5.0 % (13.4-35.0) L 11/22/21 02:12 Monocytes % (Manual) 4.0 % (0.0-7.3) 11/22/21 02:12 Nucleated RBC % Not Reportable 11/22/21 02:12 Seg Neutrophils # Man 15.4 K/mm3 (1.8-7.7) H 11/22/21 02:12 Band Neutrophils # 0.0 K/mm3 11/22/21 02:12 Lymphocytes # (Manual) 0.8 K/mm3 (1.2-5.4) L 11/22/21 02:12 Abs React Lymphs (Man) 0.0 K/mm3 11/22/21 02:12 Monocytes # (Manual) 0.7 K/mm3 (0.0-0.8) 11/22/21 02:12 Eosinophils # (Manual) 0.0 K/mm3 (0.0-0.4) 11/22/21 02:12 Basophils # (Manual) 0.0 K/mm3 (0.0-0.1) 11/22/21 02:12 Metamyelocytes # 0.0 K/mm3 11/22/21 02:12 Myelocytes # 0.0 K/mm3 11/22/21 02:12 Promyelocytes # 0.0 K/mm3 11/22/21 02:12 Blast Cells # 0.0 K/mm3 11/22/21 02:12 WBC Morphology Not Reportable 11/22/21 02:12 Hypersegmented Neuts Not Reportable 11/22/21 02:12 Hyposegmented Neuts Not Reportable 11/22/21 02:12 Hypogranular Neuts Not Reportable 11/22/21 02:12 Smudge Cells Not Reportable 11/22/21 02:12 Toxic Granulation Not Reportable 11/22/21 02:12 Toxic Vacuolation Not Reportable 11/22/21 02:12 Dohle Bodies Not Reportable 11/22/21 02:12 Pelger-Huet Anomaly Not Reportable 11/22/21 02:12 Caleb Rods Not Reportable 11/22/21 02:12 Platelet Estimate Not Reportable 11/22/21 02:12 Clumped Platelets Not Reportable 11/22/21 02:12 Plt Clumps, EDTA Not Reportable 11/22/21 02:12 Large Platelets Not Reportable 11/22/21 02:12 Giant Platelets Not Reportable 11/22/21 02:12 Platelet Satelliting Not Reportable 11/22/21 02:12 Plt Morphology Comment Not Reportable 11/22/21 02:12 RBC Morphology Normal 11/22/21 02:12 Dimorphic RBCs Not Reportable 11/22/21 02:12 Polychromasia Not Reportable 11/22/21 02:12 Hypochromasia Not Reportable 11/22/21 02:12 Poikilocytosis Not Reportable 11/22/21 02:12 Anisocytosis Not Reportable 11/22/21 02:12 Microcytosis Not Reportable 11/22/21 02:12 Macrocytosis Not Reportable 11/22/21 02:12 Spherocytes Not Reportable 11/22/21 02:12 Pappenheimer Bodies Not Reportable 11/22/21 02:12 Sickle Cells Not Reportable 11/22/21 02:12 Target Cells Not Reportable 11/22/21 02:12 Tear Drop Cells Not Reportable 11/22/21 02:12 Ovalocytes Not Reportable 11/22/21 02:12 Helmet Cells Not Reportable 11/22/21 02:12 Jarquin-[place] Bodies Not Reportable 11/22/21 02:12 [place] Rings Not Reportable 11/22/21 02:12 [place] Cells Not Reportable 11/22/21 02:12 Bite Cells Not Reportable 11/22/21 02:12 Crenated Cell Not Reportable 11/22/21 02:12 Elliptocytes Not Reportable 11/22/21 02:12 Acanthocytes (Spur) Not Reportable 11/22/21 02:12 Rouleaux Not Reportable 11/22/21 02:12 Hemoglobin C Crystals Not Reportable 11/22/21 02:12 Schistocytes Not Reportable 11/22/21 02:12 Malaria parasites Not Reportable 11/22/21 02:12 Romain Bodies Not Reportable 11/22/21 02:12 Hem Pathologist Commnt No 11/22/21 02:12 D-Dimer 2433.35 ng/mlDDU (0-234) H 11/21/21 10:36 Sodium 131 mmol/L (137-145) L 11/22/21 02:12 Potassium 3.1 mmol/L (3.6-5.0) L 11/22/21 02:12 Chloride 99.9 mmol/L (98-107) 11/22/21 02:12 Carbon Dioxide 17 mmol/L (22-30) L 11/22/21 02:12 Anion Gap 17 mmol/L 11/22/21 02:12 BUN 4 mg/dL (7-17) L 11/22/21 02:12 Creatinine 0.6 mg/dL (0.6-1.2) 11/22/21 02:12 Estimated GFR > 60 ml/min 11/22/21 02:12 BUN/Creatinine Ratio 7 % 11/22/21 02:12 Glucose 115 mg/dL (65-100) H 11/22/21 02:12 Lactic Acid 1.50 mmol/L (0.7-2.0) 11/22/21 02:12 Calcium 8.0 mg/dL (8.4-10.2) L 11/22/21 02:12 Magnesium 1.60 mg/dL (1.7-2.3) L 11/21/21 04:30 Ferritin 43.7 ng/mL (10.0-200.0) 11/21/21 10:36 Total Bilirubin 0.40 mg/dL (0.1-1.2) 11/21/21 04:30 Direct Bilirubin < 0.2 mg/dL (0-0.2) 11/21/21 04:30 Indirect Bilirubin 0.2 mg/dL 11/21/21 04:30 AST 15 units/L (5-40) 11/21/21 04:30 ALT 15 units/L (7-56) 11/21/21 04:30 Alkaline Phosphatase 60 units/L (35-129) 11/21/21 04:30 Lactate Dehydrogenase 120 units/L (91-180) 11/21/21 10:36 Total Creatine Kinase 44 units/L (30-135) 11/21/21 04:30 C-Reactive Protein 7.00 mg/dL (0.00-1.30) H 11/21/21 10:36 Total Protein 6.9 g/dL (6.3-8.2) 11/21/21 04:30 Albumin 3.6 g/dL (3.9-5) L 11/21/21 04:30 Albumin/Globulin Ratio 1.1 % 11/21/21 04:30 Procalcitonin 0.32 ng/mL (<0.15) 11/21/21 10:36 TSH 0.892 mlU/mL (0.270-4.200) 11/22/21 02:12 Free T4 1.01 ng/dL (0.76-1.46) 11/22/21 02:12 HCG, Quant 35777 mIU/mL (0-4) H 11/21/21 04:30 Urine Color Yellow (Yellow) 11/21/21 Unknown Urine Turbidity Clear (Clear) 11/21/21 Unknown Urine pH 5.0 (5.0-7.0) 11/21/21 Unknown Ur Specific [place] 1.016 (1.003-1.030) 11/21/21 Unknown Urine Protein <15 mg/dl mg/dL (Negative) 11/21/21 Unknown Urine Glucose (UA) Neg mg/dL (Negative) 11/21/21 Unknown Urine Ketones 80 mg/dL (Negative) 11/21/21 Unknown Urine Blood Mod (Negative) 11/21/21 Unknown Urine Nitrite Neg (Negative) 11/21/21 Unknown Urine Bilirubin Neg (Negative) 11/21/21 Unknown Urine Urobilinogen < 2.0 mg/dL (<2.0) 11/21/21 Unknown Ur Leukocyte Esterase Neg (Negative) 11/21/21 Unknown Urine WBC (Auto) 1.0 /HPF (0.0-6.0) 11/21/21 Unknown Urine RBC (Auto) 2.0 /HPF (0.0-6.0) 11/21/21 Unknown U Epithel Cells (Auto) 1.0 /HPF (0-13.0) 11/21/21 Unknown Urine Mucus 1+ /HPF 11/21/21 Unknown Influenza A (Rapid) Negative (Negative) 11/21/21 Unknown Influenza B (Rapid) Negative (Negative) 11/21/21 Unknown Blood Type A POSITIVE 11/22/21 08:46 Antibody Screen Negative 11/22/21 08:46 Microbiology: Microbiology 11/21/21 10:36 Peripheral/Venous Blood Culture - Preliminary 11/21/21 10:36 Peripheral/Venous Blood Culture - Preliminary Active Medications - Current Medications Current Medications: Generic Name Dose Route Start Last Admin Trade Name Freq PRN Reason Stop Dose Admin Acetaminophen 650 mg 11/21/21 10:42 11/22/21 09:27 Acetaminophen 325 Mg Tab PO 650 mg Q4H PRN Administration Pain MILD(1-3)/Fever >100.5/MARLEY Enoxaparin Sodium 40 mg 11/21/21 12:00 11/21/21 12:09 Enoxaparin 40 Mg/0.4 Ml Inj SUB-Q 40 mg QDAY ANA MARIA Administration Sodium Chloride 1,000 mls @ 100 mls/hr 11/21/21 11:15 11/21/21 14:07 Nacl 0.9% 1000 Ml IV 100 mls/hr DIRECT ANA MARIA Administration Melatonin 3 mg 11/22/21 04:02 Melatonin 5 Mg Tab PO QHS PRN Sleep Morphine Sulfate 4 mg 11/21/21 10:42 Morphine 4 Mg/1 Ml Inj IV Q4H PRN Pain , Severe (7-10) Morphine Sulfate 2 mg 11/21/21 10:42 11/22/21 02:20 Morphine 2 Mg/1 Ml Inj IV 2 mg Q4H PRN Administration Pain, Moderate (4-6) Naloxone HCl 0.1 mg 11/21/21 10:42 Naloxone 0.4 Mg/1 Ml Inj IV Q2MIN PRN Res Rate </= 8 or 02 SAT < 92% Ondansetron HCl 4 mg 11/21/21 10:42 11/22/21 09:27 Ondansetron 4 Mg/2 Ml Inj IV 4 mg Q8H PRN Administration Nausea And Vomiting Sodium Chloride 10 ml 11/21/21 22:00 11/21/21 22:38 Sodium Chloride 0.9% 10 Ml Flush Syringe IV 10 ml BID ANA MARIA Administration Sodium Chloride 10 ml 11/21/21 10:42 Sodium Chloride 0.9% 10 Ml Flush Syringe IV PRN PRN LINE FLUSH
[2021-11-22] MEDS: SODIUM CHLORIDE 0.9% 1000 ML 1,000 ML IV SCH (15:30)
--- NOTE | 2021-11-22 15:56 | Consultation ---
History of Present Illness Consult date: 11/22/21 Requesting physician: JUAN JACKSON History of present illness: 36yo with sepsis and threatened . Previable gestation. Obtain workup(labs ordered) B/L pneumonia on Chest Xray: etiology unknown: Goal to treat mom at this point. US reviewed: cervix long, thick and closed: +ve IUP ~15 weeks If vaginal bleeding persists or worsens and is accompanied by cervical dilatation, will given cytotec 200mcg PO Q6 hours x 4 doses for induction/augmentation of labor. Will continue to follow. Arleen Mace MD Medications and Allergies Allergies Allergy/AdvReac Type Severity Reaction Status Date / Time acetaminophen [From Percocet] Allergy Vomiting Verified 11/21/21 03:15 oxycodone [From Percocet] Allergy Vomiting Verified 11/21/21 03:15 Home Medications Medication Instructions Recorded Confirmed Last Taken Type Ondansetron [Zofran Odt] 4 mg PO Q8HR PRN #20 tab.rapdis 11/21/21 Unknown Rx Multivitamin Tablet 1 tab PO DAILY 11/22/21 11/22/21 11/18/21 History Active Meds: Active Medications Acetaminophen (Acetaminophen 325 Mg Tab) 650 mg PO Q4H PRN PRN Reason: Pain MILD(1-3)/Fever >100.5/MARLEY Last Admin: 11/22/21 09:27 Dose: 650 mg Documented by: Enoxaparin Sodium (Enoxaparin 40 Mg/0.4 Ml Inj) 40 mg SUB-Q QDAY [facility] Last Admin: 11/21/21 12:09 Dose: 40 mg Documented by: Sodium Chloride (Nacl 0.9% 1000 Ml) 1,000 mls @ 100 mls/hr IV DIRECT [facility] Last Admin: 11/21/21 14:07 Dose: 100 mls/hr Documented by: Melatonin (Melatonin 5 Mg Tab) 3 mg PO QHS PRN PRN Reason: Sleep Morphine Sulfate (Morphine 4 Mg/1 Ml Inj) 4 mg IV Q4H PRN PRN Reason: Pain , Severe (7-10) Morphine Sulfate (Morphine 2 Mg/1 Ml Inj) 2 mg IV Q4H PRN PRN Reason: Pain, Moderate (4-6) Last Admin: 11/22/21 02:20 Dose: 2 mg Documented by: Naloxone HCl (Naloxone 0.4 Mg/1 Ml Inj) 0.1 mg IV Q2MIN PRN PRN Reason: Res Rate </= 8 or 02 SAT < 92% Ondansetron HCl (Ondansetron 4 Mg/2 Ml Inj) 4 mg IV Q8H PRN PRN Reason: Nausea And Vomiting Last Admin: 11/22/21 09:27 Dose: 4 mg Documented by: Sodium Chloride (Sodium Chloride 0.9% 10 Ml Flush Syringe) 10 ml IV BID ANA MARIA Last Admin: 11/21/21 22:38 Dose: 10 ml Documented by: Sodium Chloride (Sodium Chloride 0.9% 10 Ml Flush Syringe) 10 ml IV PRN PRN PRN Reason: LINE FLUSH - Vital Signs Vital signs: Vital Signs Temp Pulse Resp BP Pulse Ox 98.7 F 125 H 18 106/61 100 11/21/21 03:15 11/21/21 03:15 11/21/21 03:15 11/21/21 03:15 11/21/21 03:15 Temp Pulse Resp BP Pulse Ox 99.5 F 126 H 20 93/34 99 11/22/21 14:14 11/22/21 14:14 11/22/21 14:14 11/22/21 14:59 11/22/21 15:12 Results Result Diagrams: 11/22/21 02:12 11/22/21 02:12 Abnormal lab results 11/22/21 11/22/21 Range/Units 02:12 02:12 WBC 16.9 H (4.5-11.0) K/mm3 Seg Neuts % (Manual) 91.0 H (40.0-70.0) % Lymphocytes % (Manual) 5.0 L (13.4-35.0) % Seg Neutrophils # Man 15.4 H (1.8-7.7) K/mm3 Lymphocytes # (Manual) 0.8 L (1.2-5.4) K/mm3 Sodium 131 L (137-145) mmol/L Potassium 3.1 L (3.6-5.0) mmol/L Carbon Dioxide 17 L (22-30) mmol/L BUN 4 L (7-17) mg/dL Glucose 115 H (65-100) mg/dL Calcium 8.0 L (8.4-10.2) mg/dL All other labs normal.
[2021-11-22] MEDS: ENOXAPARIN 40 MG/0.4 ML INJ SUB-Q SCH (16:33)
[2021-11-22 19:05] LABS: Hepatitis C Virus Antibody Non-Reactive (NonReactive)
[2021-11-22] MEDS: HYDROmorphone 1 MG/1 ML INJ IV PRN ×2 (19:43→19:56)
[2021-11-23] MEDS ORDERED: fentaNYL 100 MCG/2 ML INJ IV ONE (06:29)
[2021-11-23] MEDS ORDERED: cefTRIAXone/NS 1 GM/50 ML 1 GM/50 ML BAG IV SCH (09:00)
--- NOTE | 2021-11-23 09:22 | Progress Note ---
Subjective - Subjective Date of service: 11/23/21 Interval history: Patient delivered non viable fetus this morning. Plan for Methergine 0.2mg PO Q8 x 3 doses(ordered in [employer]) Suspect sepsis second to underlying chorioamnionitis. No further OB intervention required. VB will continue!6 weeks Please have patient follow up in 6 weeks as outpatient. Arleen Mace MD Objective - Vital Signs Vital Signs: Vital Signs - 12hr 11/22/21 11/22/21 22:10 22:31 Temperature 97.8 F Pulse Rate 124 H Respiratory 20 18 Rate Blood Pressure 94/67 O2 Sat by Pulse 95 99 Oximetry - Labs Labs: Abnormal Labs 11/21/21 11/21/21 11/21/21 04:30 04:30 04:30 WBC 12.4 H Seg Neuts % (Manual) 93.0 H Lymphocytes % (Manual) 4.0 L Seg Neutrophils # Man 11.5 H Lymphocytes # (Manual) 0.5 L D-Dimer Sodium 131 L Potassium 3.2 L Chloride 96.5 L Carbon Dioxide 18 L BUN 6 L Glucose 117 H Lactic Acid Calcium Magnesium C-Reactive Protein Albumin HCG, Quant [id number] H 11/21/21 11/21/21 11/21/21 04:30 10:36 10:36 WBC Seg Neuts % (Manual) Lymphocytes % (Manual) Seg Neutrophils # Man Lymphocytes # (Manual) D-Dimer 2433.35 H Sodium Potassium Chloride Carbon Dioxide BUN Glucose 210 H Lactic Acid Calcium Magnesium 1.60 L C-Reactive Protein 7.00 H Albumin 3.6 L HCG, Quant 11/21/21 11/22/21 11/22/21 10:36 02:12 02:12 WBC 16.9 H Seg Neuts % (Manual) 91.0 H Lymphocytes % (Manual) 5.0 L Seg Neutrophils # Man 15.4 H Lymphocytes # (Manual) 0.8 L D-Dimer Sodium 131 L Potassium 3.1 L Chloride Carbon Dioxide 17 L BUN 4 L Glucose 115 H Lactic Acid 3.70 H* Calcium 8.0 L Magnesium C-Reactive Protein Albumin HCG, Quant Laboratory Results - last 24 hr 11/22/21 11/22/21 11/22/21 08:30 08:46 18:00 Syphilis IgG Antibody Coronavirus (PCR) Negative Hep Bs Antigen Hepatitis C Antibody Non-reactive HIV 1&2 Antibody Rapid HIV P24 Antigen Rubella IgG Antibody Immune Blood Type A POSITIVE Antibody Screen Negative 11/22/21 11/22/21 11/22/21 18:00 18:00 18:00 Syphilis IgG Antibody Nonreactive Coronavirus (PCR) Hep Bs Antigen Nonreactive Hepatitis C Antibody HIV 1&2 Antibody Rapid Non react HIV P24 Antigen Non react Rubella IgG Antibody Blood Type Antibody Screen
[2021-11-23] MEDS ORDERED: AZITHROMYCIN 250 MG TAB PO SCH (10:00)
[2021-11-23] MEDS: ENOXAPARIN 40 MG/0.4 ML INJ SUB-Q SCH (10:11)
[2021-11-23] MEDS: SODIUM CHLORIDE 0.9% 1000 ML 1,000 ML IV SCH (10:13)
[2021-11-23] MEDS ORDERED: AMPICILLIN/SULBACTA 3GM/100ML 3 GM/100 ML BAG IV SCH (13:00)
[2021-11-23] MEDS: METHYLERGONOVINE 0.2 MG TABLET PO SCH ×2 (13:08→15:48)
--- NOTE | 2021-11-23 13:13 | Discharge Summary ---
Providers - Providers Date of Admission: 11/23/21 11:45 Attending physician: JUAN JACKSON MD 11/21/21 10:03 Consult to Physician [CONS] Urgent Comment: Consulting Provider: AMAN GONZALES Physician Instructions: Reason For Exam: pregannt Primary care physician: OUTPATIENT THERAPIST Hospitalization Condition: Good Exam - Constitutional Vitals: Temp Pulse Resp BP Pulse Ox 97.8 F 124 H 18 94/67 99 11/22/21 22:10 11/22/21 22:10 11/22/21 22:31 11/22/21 22:10 11/22/21 22:31 Plan Care Plan Goals: Please follow-up with your [facility] in 6 weeks. Make sure to take all medications prescribed to you until they are complete. Follow up with: PRIMARY CAREMD [Primary Care Provider] - 3-5 Days Prescriptions: Azithromycin 250 mg PO DAILY 4 Days #4 tablet Methylergonovine [Methergine] 0.2 mg PO Q8HR 1 Days #2 tablet Ketorolac [Toradol] 10 mg PO Q6H PRN 3 Days #12 tablet PRN Reason: Pain Amoxicillin [Trimox CAP] 1,000 mg PO Q8H 4 Days #12 capsule
[2021-11-23 13:38] VITALS: BP 120/79
== END 2021-11-23 17:44 | disposition home or self-care (01) | DRG 831 ==
LOC: ED 03:14 → 3A 10:10 → OBSVTOIN 11-23 11:45
PROVIDERS: ADMIT Student in an Organized Health Care Education/Training Program; ATTEND Student in an Organized Health Care Education/Training Program
DX: O98.812 Other maternal infectious and parasitic diseases complicating pregnancy, second trimester (principal); A41.9 Sepsis, unspecified organism; J96.01 Acute respiratory failure with hypoxia; E87.2 Acidosis; E87.6 Hypokalemia; Z20.822 Contact with and (suspected) exposure to COVID-19; E83.42 Hypomagnesemia; O99.891 Other specified diseases and conditions complicating pregnancy; O99.282 Endocrine, nutritional and metabolic diseases complicating pregnancy, second trimester; O99.512 Diseases of the respiratory system complicating pregnancy, second trimester; R00.0 Tachycardia, unspecified; Z3A.15 15 weeks gestation of pregnancy
CPT/HCPCS: 36415; 71045; 76805; 76817; 78580; 80048; 80076; 81001; 82140; 82550; 82728; 82947; 83615; 83735; 84145; 84439; 84443; 84702; 85007; 85025; 85379; 86140; 86592; 86706; 86762; 86803; 86850; 86900; 86901; 87040; 87400; 87806; 93005; 99285; 99406; G0378; J7070; Q0162; A9540; J0295; J0696; J1170; J1200; J1650; J2270; J2405; J3010; J7030; J7120; U0003